=== PATIENT | male | born 1945 | race Caucasian/White ===

== ENCOUNTER → 2018-04-25 12:36 | Outpatient (CLI) | payer BC ==
[2014-11-09 21:48] VITALS: BMI 25.8
[~2018-04-25 12:36] MED LIST: BAYER CHEWABLE81 MG PO; LIPITOR40 MG PO; MULTAQ400 MG PO; PRILOSEC20 MG PO; XARELTO20 MG PO
== END | disposition home or self-care (01) ==
LOC: D.CT 12:36
DX: R07.9 Chest pain, unspecified (principal)